=== PATIENT | male | born 1970 | race Two or more races ===

== ENCOUNTER 2017-03-11 07:35 | Inpatient (IN) | payer BC, MEDICARE ==
[~2017-03-11] VITALS: Ht 167.6 cm; Wt 74.7 kg
--- NOTE | ~2017-03-11 | CON ---
PATIENT'S NAME: MERRILL BRITO [facility] AGE: 46 Y [address] ROOM: [address] [address] LOCATION: [facility] [place] ADMIT DATE: 03/11/2017 Consultation DISCHARGE DATE: 03/12/2017 FAMILY PHYSICIAN: Venkat Ochoa MD ATTENDING PHYSICIAN: Ben Davidson DATE OF CONSULTATION: 03/12/2017 REFERRING PHYSICIAN: Lucy Randhawa MD INITIAL PSYCHIATRIC EVALUATION/CONSULTATION DATA: This is a 46-year-old [place]i male, date of 1970, currently admitted to [facility]. Consultation is requested by Dr. Davidson. DIAGNOSES: At time of the evaluation, adjustment disorder with depression. RECOMMENDATIONS: After talking extensively with the patient, the patient is denying being suicidal and denying being currently depressed. He admits previous depression but not currently depressed, and he is sure that he does not want any kind of treatment for depression. He will actually call if needed. He accepts that if things changes, he will be ready or willing to have some treatment, but at present time, he is refusing to have any treatment for depression, and he is denying being currently suicidal. HISTORY: This gentleman has been having problems since he actually got on dialysis approximately a year ago. He has been doing reasonably okay until recently, in which he actually needs some dialysis, and the report is that even as early at this morning he was talking about life not being worth living, so a psychiatric consultation was requested. I came to [facility], reviewed electronic records, the paper records, talked to the patient on a [id number] and with the nurse also for collateral information. The patient is cooperative, a good historian that accepts getting depressed occasionally, apparently for what he says has not need any criteria for major depressive disorder or dysthymic disorder and seems to be situational, and the sadness seems to be episodic. There has been time, in which the sadness is profound and he is having some passive wishes, but not active suicidal idea. The patient had been tried on antidepressant, but he stopped thinking that it was not needed and not working for him. The patient has not been psychotic, manic, or hypomanic. No issues with obsession and compulsion, of eating disorder. There is a history of post traumatization when he was a child PATIENT'S NAME: MERRILL BRITO [facility] AGE: 46 Y [address] ROOM: [address] [address] LOCATION: [facility] [place] ADMIT DATE: 03/11/2017 Consultation DISCHARGE DATE: 03/12/2017 FAMILY PHYSICIAN: Venkat Ochoa MD ATTENDING PHYSICIAN: Ben Davidson without full PTSD diagnosis, and there is some family history of depression in the sister. MENTAL STATUS EXAMINATION: This is a gentleman, Nauruan-speaking, cooperative, good hygiene, good eye contact. No psychomotor agitation or retardation. His speech is normal in volume, tone, and production. Mood is described as good, assessed as labile. Affect is labile but appropriate to thought content. Thought content is relevant by the patient denying any suicidal, homicidal ideation or denying any auditory hallucination, denying any delusional thoughts. Thought process coherent, congruent. No loosening of association. Insight and judgment seem to be fair. Memory is within normal limits. He is alert and oriented and intelligence is average. STRENGTHS: Intelligence, access to service. BARRIERS: Not currently. CHASE RODRIGUEZ MD HG/modl /[id number] d: 03/12/176 t: 03/14/17 1004, CONSULTATION REPORT
--- NOTE | ~2017-03-11 | CON ---
PATIENT'S NAME: MERRILL BRITO [facility] AGE: 46 Y [address] ROOM: [place] [address] LOCATION: [facility] [place] ADMIT DATE: 03/11/2017 Consultation DISCHARGE DATE: FAMILY PHYSICIAN: Venkat Ochoa MD ATTENDING PHYSICIAN: TENZIN COREAS DATE OF CONSULTATION: 03/11/2017 REFERRING PHYSICIAN: Keyonna Shields This is a [facility] Nephrology consultation. REASON FOR CONSULTATION: End-stage renal disease, needing hemodialysis therapy, hyperkalemia. HISTORY OF PRESENT ILLNESS: This is a 46-year-old male patient, who is well known to Dr. Shields for history of end-stage renal disease, on hemodialysis 4 days a week. The patient reportedly had his last hemodialysis on March 01, 2017, and has subsequently missed his hemodialysis appointment since that time. He is scheduled to receive hemodialysis on Saturday, Saturday, Saturday, and Saturday every week. Today, the patient would have missed 5 of his regularly scheduled hemodialysis' appointments. Per the patient's , he did feel poorly this morning and was going to attend an outpatient hemodialysis appointment, however, due to the patient's absence, he was sent to the emergency room for further evaluation and possible inpatient hemodialysis. PAST MEDICAL HISTORY: The patient does have a past medical history of: 1. End-stage renal disease from diabetes and uncontrolled hypertension. 2. Anxiety. 3. Hypoalbuminemia. 4. Nephrotic syndrome. 5. Anemia of chronic kidney disease. 6. Hypogonadism. PAST SURGICAL HISTORY: 1. Left arm brachiobasilic primary AV fistula placement by Dr. Mcclure on November 23, 2015. 2. Second-stage basilic transposition of the left AV fistula by Dr. Mcclure on 02/16/2016. SOCIAL HISTORY: The patient does live at home with his . He does have a history of past tobacco abuse and reportedly smoked half a pack per day for at least 25 years. Denies any alcohol use at this time. Denies illicit drug use. PATIENT'S NAME: MERRILL BRITO [facility] AGE: 46 Y [address] ROOM: [address] [address] LOCATION: [facility] [place] ADMIT DATE: 03/11/2017 Consultation DISCHARGE DATE: FAMILY PHYSICIAN: Venkat Ochoa MD ATTENDING PHYSICIAN: TENZIN COREAS FAMILY HISTORY: Reviewed and is significant for his mother dying in her 70s from complications of diabetes as well as end-stage renal disease. His father in his 80s and also had diabetes. CURRENT MEDICATIONS: 1. Amlodipine 10 mg daily. 2. Coreg 12.5 mg twice a day. 3. Glimepiride 4 mg 2 tablets daily. 4. Losartan 50 mg 1 tablet twice a day. 5. Paxil 12.5 mg 1 tablet at bedtime. 6. PhosLo 667 mg 4 tablets 3 times a day with food. 7. MiraLAX 15 g orally as directed for constipation. ALLERGIES: NONE TO MEDICATIONS. REVIEW OF SYSTEMS: GENERAL: Positive for fatigue. EYES: Positive for blurry vision. NOSE: No epistaxis or rhinorrhea. MOUTH: No gingival bleeding. Positive for dry mouth. THROAT: No sore throat, hoarseness, or cough. RESPIRATORY: Denies any wheezing or hemoptysis. CARDIOVASCULAR: Denies any chest pain or palpitations. Complains of near syncope on multiple occasions over the past few days. GASTROINTESTINAL: Negative for nausea, vomiting, or diarrhea. GENITOURINARY: Negative for dysuria or hematuria. Negative for incontinence. MUSCULOSKELETAL: Generalized arthralgias. NEUROLOGICAL: Denies numbness and tingling in the upper or lower extremities. HEMATOLOGICAL: No bruising or easy bleeding. IMMUNOLOGICAL: No recent infections. PSYCHIATRIC: Positive for depression. Positive for anxiety. PHYSICAL EXAMINATION: VITAL SIGNS: Blood pressure is 147/78, pulse is 95, respirations are 18, temp is 97.0, sats are 96% on room air. Weight is 78.8 kg, dry weight is established as 71.0 kg. GENERAL: On exam, this is an alert, oriented, male, who appears his approximate stated age. He is in no acute distress. HEENT: Head: His head is normocephalic and atraumatic. Eyes: Pupils are equal and react briskly to light and accommodation. Nose: Midline. Mouth: No gingival bleeding. Mucous membranes are dry. Throat is without lymphadenopathy or carotid bruits. No JVD. PATIENT'S NAME: MERRILL BRITO [facility] AGE: 46 Y [address] ROOM: [place] [address] LOCATION: [facility] [place] ADMIT DATE: 03/11/2017 Consultation DISCHARGE DATE: FAMILY PHYSICIAN: Venkat Ochoa MD ATTENDING PHYSICIAN: TENZIN COREAS LUNGS: Sounds are diminished in the bases bilaterally. CARDIOVASCULAR: He has a tachycardic rhythm with a rate of 112 beats per minute. Unable to appreciate any murmurs, rubs, or thrills. ABDOMEN: Soft, nontender, and nondistended. Bowel sounds positive. EXTREMITIES: Show no signs of peripheral edema, clubbing, or cyanosis. NEUROLOGICAL: Cranial nerves 2 through 12 are grossly intact. LABORATORY DATA: WBC 7.5, hemoglobin 8.8, hematocrit 25.4, platelets 165, glucose 146, BUN is 210, creatinine 21.6, sodium 136, potassium is 8.1, CO2 is 14, chloride 102, calcium 8.9, and albumin is 3.1, phos is 8.3, and magnesium is 3.8. ASSESSMENT AND PLAN: 1. End-stage renal disease, needing hemodialysis. We will obtain the patient's outpatient clinical record. The patient's potassium is greater than 8. We will initiate hemodialysis as soon as possible. The patient does not show any acute ST-T wave abnormalities on EKG at this time. We will start him on a 2K bath for 3 hours. We will recheck a potassium at the end of treatment. We will place him on a low-potassium diet. 2. Hyperkalemia. Likely secondary to end-stage renal disease. The patient is to be dialyzed immediately. 3. Depression. The patient has reportedly stopped taking his Paxil as an outpatient. Per the patient and family's request, we will involve a psychiatry consult at this time. We will make further recommendations at that time. Dr. Coreas, hospitalist, has been notified of the patient's admission. This patient has been seen and assessed by Dr. Shields. His care is being conducted in consultation with Dr. Shields as well as me. We will plan further recommendations as they are forthcoming. ELADIO RODRIGUEZ DNP, ORNAMENTAL METAL FABRICATOR APPRENTICE FOR M JEY SHIELDS MD ENS/modl /[id number] d: 03/11/172050 t: 03/20/17 1608, CONSULTATION REPORT
--- NOTE | ~2017-03-11 | ER ---
PATIENT'S NAME: MERRILL BRITO [facility] AGE: 46 Y [address] ROOM: [place] [address] LOCATION: [facility] [place] ADMIT DATE: 03/11/2017 ER/Outpatient Report DISCHARGE DATE: FAMILY PHYSICIAN: Venkat Ochoa MD ATTENDING PHYSICIAN: TENZIN COREAS Time of Arrival: 0735 hours. Time of Evaluation: 0740 hours. CHIEF COMPLAINT: Missed dialysis, not feeling well. HISTORY OF PRESENT ILLNESS: The patient is a 46-year-old male who presents to the emergency department today with a chief complaint of missed his dialysis and not feeling well. He reports he just feels weak. He reports he has not had dialysis since last Saturday approximately 8 days ago. He normally goes on Saturday, Saturday, and Fridays. He denies any chest pain, no shortness of breath, just feels very weak. Denies any fevers. Does have some chills. No nausea, vomiting, diarrhea, constipation, or abdominal pain. PAST MEDICAL HISTORY: Chronic kidney disease, on dialysis; hypertension; and [id number] diabetes. PAST SURGICAL HISTORY: Left arm fistula. SOCIAL HISTORY: The patient denies any tobacco, alcohol, or illicit drug use. ALLERGIES: NO KNOWN DRUG ALLERGIES. MEDICATIONS: Please see list. PRIMARY CARE DOCTOR: Venkat Ochoa MD in [place]. MAT MACHINE TENDER: Lucy Randhawa MD. REVIEW OF SYSTEMS: All systems are reviewed by myself and are negative with the exception of [facility]GE: 46 Y [address] ROOM: [place] [address] LOCATION: [facility] [place] ADMIT DATE: 03/11/2017 ER/Outpatient Report DISCHARGE DATE: FAMILY PHYSICIAN: Venkat Ochoa MD ATTENDING PHYSICIAN: TENZIN COREAS those discussed in HPI and past medical history. PHYSICAL EXAMINATION: VITAL SIGNS: Weight 79.2 kg. Blood pressure 179/90, pulse 107, respiratory rate 18, temperature 97.9, and oxygen saturation 97% on room air. GENERAL: The patient is a 46-year-old male who appears stated age, in no acute distress. HEENT: Normocephalic, atraumatic. Pupils are equal, round, and reactive to light and accommodation. NECK: Supple. There is no nuchal rigidity. CARDIOVASCULAR: Regular rate and rhythm. No murmurs, rubs, or gallops. LUNGS: Clear to auscultation bilaterally. No wheezes, rales, or rhonchi. ABDOMEN: Soft, nontender, and nondistended. No rebound, rigidity, or guarding. MUSCULOSKELETAL: The patient moves all 4 extremities. SKIN: Warm and dry. LABORATORY DATA AND X-RAYS: Labs and x-rays are obtained. EKG is obtained, is interpreted by myself, does show sinus tachycardia with a rate of 107, normal axis, normal interval, no ST elevation or ST depression. There is peaked T-wave noted. CBC is unremarkable except for hemoglobin 8.8 and hematocrit 25.4. CMP is unremarkable except for potassium 8.1, CO2 of 14, BUN 210, creatinine 21.6, phosphorus 8.3, magnesium 3.8. IMPRESSION: 1. Severe hyperkalemia. 2. Missed dialysis secondary to medical noncompliance. 3. Chronic anemia. 4. Hypermagnesemia. 5. Initial visit. EMERGENCY DEPARTMENT COURSE: The patient was brought back to the examination room. Seen and evaluated by myself. IV is established. Laboratory analysis and imaging are obtained as described above. EKG was obtained. Once the patient's potassium was returned, I contacted Antonia Leroyney with Dialysis. They do report that they are ready to dialyze him right now and can get him straight in. The patient is sent directly to dialysis, thus the patient was not given medications for hyperkalemia, as they are ready to dialyze him. The patient will be admitted with weakness and severe hyperkalemia by the Hospitalist Service. I have discussed the case with the Hospitalist Service, Dr. Coreas. DISPOSITION: The patient is admitted in stable condition. PATIENT'S NAME: MERRILL BRITO [facility] AGE: 46 Y [address] ROOM: [address] [address] LOCATION: [facility] [place] ADMIT DATE: 03/11/2017 ER/Outpatient Report DISCHARGE DATE: FAMILY PHYSICIAN: Venkat Ochoa MD ATTENDING PHYSICIAN: TENZIN COREAS DO EMMANUEL LINO/modl /[id number] d: 03/11/172111 t: 03/20/17 0651, OUTPATIENT REPORT
--- NOTE | ~2017-03-11 | HP ---
PATIENT'S NAME: MERRILL BRITO [facility] AGE: 46 Y [address] ROOM: [address] [address] [place] [facility] [place] DATE: 03/11/2017 History & Physical DISCHARGE DATE: FAMILY PHYSICIAN: Venkat Ochoa MD ATTENDING PHYSICIAN: TENZIN COREAS DATE OF SERVICE: CHIEF COMPLAINT: Generalized weakness. HISTORY OF PRESENT ILLNESS: This is a 46-year-old male, who has a longstanding history of diabetes type 2, hypertension, and end-stage renal disease, on hemodialysis; usually gets four days per week on Saturday, Saturday, Saturday, and Saturday. However, the patient is non-compliant with the dialysis and also with the home medication. The story is that, for the last 2 days, the patient states that he has been feeling weak and tired in general, and feels this muscle weakness all over his body. Because of this, the patient came here for evaluation. The patient also says that he has missed the last three sessions of the hemodialysis. When questioned why, patient could not really give me an answer. The patient is also somewhat noncompliant with the home medications for the diabetes and also for the hypertension as well. Today, in the ED, potassium was found to be 8.1, and the EKG showed tall-peaked T-wave with sinus tachycardia heart rate of 107, MA of 174 msec, QRS of 103 msec, and QTc of 387 msec. The patient was taken to the dialysis right away, and currently is status post 3 L removal of the hemodialysis. Potassium checked again was 3.4. The patient was asymptomatic, will be admitted in the Medical-Surgical Unit, and will have another dialysis tomorrow and also on Saturday. The patient denies any other symptoms. REVIEW OF SYSTEMS: As mentioned in the history of present illness. All other systems were reviewed and were negative except those mentioned in the history of present illness. PAST MEDICAL HISTORY: 1. End-stage renal disease, on hemodialysis every Saturday, Saturday, Saturday, and Saturday, but patient is noncompliant. 2. Diabetes, type 2. 3. Hypertension. ALLERGIES: NO KNOWN DRUG ALLERGIES ACCORDING TO THE PATIENT. PATIENT'S NAME: MERRILL BRITO [facility] AGE: 46 Y [address] ROOM: [id number] [place], [place] [address] [place]: [facility] [place]MIT DATE: 03/11/2017 History & Physical DISCHARGE DATE: FAMILY PHYSICIAN: Venkat Ochoa MD ATTENDING PHYSICIAN: TENZIN COREAS [place] MEDICATIONS: Currently is being reconciled. It will be addressed once the list is ready. SOCIAL HISTORY: The patient was a former cigarette smoker. He quit about 3 years ago. He used to smoke about two packs per day for 20 years. He denies any alcohol or any illegal drug use. PAST SURGICAL HISTORY: Status post left AV fistula arm placement for hemodialysis. FAMILY HISTORY: Father has diabetes. Mother also had diabetes, type 2. PHYSICAL EXAMINATION: VITAL SIGNS: At the time of my dictation, temperature was 98, blood pressure was 150/75, respirations were 14, heart rate was 68, and saturation was 98% on room air. GENERAL APPEARANCE: Alert and oriented x3, in no acute distress. HEENT: Pupils are equally round and reactive to light. Anicteric sclerae. Nasal turbinates are normal bilaterally. Moist oral mucosa. NECK: No JVD. CARDIOVASCULAR: Regular rate and rhythm. No murmur. No rubs. No gallops. Normal S1 and S2. RESPIRATORY: Some decreased breath sounds in bibasilar bases, but otherwise clear to auscultation. ABDOMEN: Soft, nontender, and nondistended. Normal bowel sounds. No mass. No hepatosplenomegaly. Bowel sounds are present. No abdominal rigidity. EXTREMITIES: No edema in upper or lower extremities. SKIN: No ulcer. No rash. No cyanosis. NEUROLOGIC: Grossly nonfocal. MUSCULOSKELETAL: No joint pain. No muscle pain. Range of motion was intact. LABORATORY DATA: White blood cells of 7.5, hemoglobin of 8.8, hematocrit of 25.4, and platelets of 165. Glucose was 146, BUN was 210, creatinine was 21.6, sodium was 136, potassium was 8.1 and then 3.4 after hemodialysis, chloride was 102, CO2 was 14, calcium was 8.9, albumin was 3.1, phosphorus was 8.3, magnesium was 3.8, anion gap was 28.1, and GFR was 2. IMAGING STUDIES: EKG on admission on March 11, 2017 at 08:17 a.m. showed sinus tachycardia heart rate of 107, MA of 174 msec, QRS of 103 msec, and QTc of 387 msec with a tall- peaked T-wave. PATIENT'S NAME: MERRILL BRITO [facility] AGE: 46 Y [address] ROOM: [address] [address] LOC[place]: [facility] [place] ADMIT DATE: 03/11/2017 History & Physical DISCHARGE DATE: FAMILY PHYSICIAN: Venkat Ochoa MD ATTENDING PHYSICIAN: TENZIN COREAS ASSESSMENT AND PLAN: 1. Regarding his hyperkalemia secondary to noncompliance with the hemodialysis for the end-stage renal disease: Most likely cause is his noncompliance with his hemodialysis sessions. The patient missed the last three sessions of hemodialysis. The plan will be to continue hemodialysis tomorrow and also on Saturday. Follow up with Nephrology to see when the patient can be discharged home to continue outpatient hemodialysis. I will check the labs again in the morning. 2. Regarding his hypertension: Continue amlodipine 10 mg p.o. daily and home medication needs to be addressed once it is reconciled. For now, I will add IV labetalol p.r.n. and IV hydralazine p.r.n. for hypertension control. 3. Regarding his diabetes, type 2: Check A1c, and also can have a diabetic diet. Also, use subcu aspart low dose q.4 hours and titrate as needed. 4. Regarding his deep venous thrombosis prophylaxis: The patient can have heparin subcu three times a day 5000 units. 5. Code status: He is a full code. 6. Regarding his depression: Currently not suicidal, I will get psychiatry consult to evaluate his depression per renal's recommendation. Time spent in care on the day of admission was 40 minutes, where 20 minutes were spent in chart review and interview and also on physical examination. The other 20 minutes were spent on counseling including going over the plan of care with the patient, and addressing all his questions and concerns to his satisfaction. I also went over the plan of care with the patient's as well to her satisfaction. Further plan will depend on clinical course. TENZIN COREAS MD CC/modl /[id number] D: [id number] T: [id number] HISTORY & PHYSICAL
[~2017-03-11 07:35] MED LIST: AMARYL4 MG PO; COREG25 MG PO; HUMULIN 70100 UNIT/M SUB-Q; NORCO 5-325 MG1 TAB PO; NORVASC10 MG PO; OCUVITE SOFTGE1 EACH PO; ONE DAILY FOR1 EACH PO; PHOSLO667 MG PO; THERAGRAN-M1 TAB PO; ULTRAM50 MG PO
[2017-03-11 08:46] LABS: BASOPHIL % 0.3 %; EOSINOPHIL # 0.1 K/uL (0.0-0.5); EOSINOPHIL % 1.6 %; HEMATOCRIT 25.4 % (37.0-53.0); HEMOGLOBIN 8.8 g/dL (12.0-17.0); IMMATURE GRANULOCYTE % 0.4 %; LYMPHOCYTE # 1.1 K/uL (0.8-4.0); LYMPHOCYTE % 14.3 %; MCH 34.1 pg (27.0-34.0); MCHC 34.6 gm/dL (32.0-36.5); MCV 98.4 fl (83.0-98.0); MONOCYTE # 0.5 K/uL (0.0-1.0); MONOCYTE % 6.7 %; MPV 10.5 fl (9.4-12.4); NEUTROPHIL # (ANC) 5.7 K/uL (1.4-9.0); NEUTROPHIL % 76.7 %; NRBC % 0 /100WBC (0-0.00); PLATELET COUNT 165 K/uL (150-450); RDW-CV 14.3 % (11.9-14.6); WBC 7.5 K/uL (4.0-11.0)
[2017-03-11 08:47] LABS: RBC 2.58 M/uL (4.00-6.00)
[2017-03-11 09:12] LABS: ALBUMIN 3.1 gm/dL (3.5-5.0); CALCIUM 8.9 mg/dL (8.5-10.5); PHOSPHORUS 8.3 mg/dL (2.5-4.9)
[2017-03-11 09:26] LABS: ANION GAP 28.1 (10.0-19.0); MAGNESIUM 3.8 mg/dL (1.8-2.6)
[2017-03-11 09:29] LABS: CREATININE 21.6 mg/dL (0.6-1.3); POTASSIUM 8.1 mMol/L (3.7-5.1)
[2017-03-11 13:54] LABS: MAGNESIUM 2.6 mg/dL (1.8-2.6)
[2017-03-11 14:03] LABS: POTASSIUM 3.4 mMol/L (3.7-5.1)
[2017-03-11] MEDS ORDERED: COZAAR50 MG PO (16:56)
[2017-03-11] MEDS ORDERED: COREG12.5 MG PO (16:57)
[2017-03-11] MEDS ORDERED: PHOSLO667 MG PO (17:01)
--- NOTE | 2017-03-11 17:07 | NUR ---
Significant Event: Admit at 1540. Ambulates few steps in room with SBA. Denies pain. Scratches to R) outer ng. Hypertensive. Tele with no calls. Dialysis today, plan for dialysis tomorrow. Follow up:
--- NOTE | 2017-03-11 18:32 | NUR ---
Patient is 46 yo male admitted from ER today. Patient had dialysis today. He states he was dizzy this morning and fell. Patient states he did not take any dialysis treatments last week as he was feeling pretty good and didn't think he needed any. states "I guess I should have taken them." accompanies patient. patient is pleasant. states he is depressed. Education is given as documented. patient and family deny questions at this time. pneumatics are on bilat calves. pt payton well. fall bracelet on. Call light is within reach. patient denies needs at this time. Report is given to night RN.
--- NOTE | 2017-03-11 18:54 | NUR ---
Saline lock is started in right forearm w/20 ga intracath without diff. pt payton well. Advanced Directive booklet was given to patient with instructions for use. pt denies questions. Report is given to SHEMAR Taylor.
--- NOTE | 2017-03-12 03:47 | NUR ---
Significant Event: VSS. Alert and oriented X3. On tele, in sinus rhythm, no calls from telemetry. Denies dizziness. Fistual to LUE, bruit and thrill present. Will have dialysis again today. Pt did have 1 small void, unable to measure. Denies pain. Started on heparin for DVT prophylaxis. Has bilateral pneumatic pumps on. Diabetic neuropathy to bilateral feet. Accuchecks q 4 hr. Has not needed any sliding scale coverage. Follow up: Would like a sleeping pill ordered if patient stays again tonight. Change accuchecks to AC&HS?
[2017-03-12 07:16] LABS: HEMATOCRIT 24.6 % (37.0-53.0); HEMOGLOBIN 8.6 g/dL (12.0-17.0); MCH 33.9 pg (27.0-34.0); MCV 96.9 fl (83.0-98.0); MPV 10.2 fl (9.4-12.4); RBC 2.54 M/uL (4.00-6.00)
[2017-03-12 07:34] LABS: CALCIUM 8.3 mg/dL (8.5-10.5); PHOSPHORUS 7.4 mg/dL (2.5-4.9)
[2017-03-12 07:37] LABS: CREATININE 13.1 mg/dL (0.6-1.3)
--- NOTE | 2017-03-12 16:33 | NUR ---
Significant Event:Is A/O.Had dialysis today.Fistula Lt.upper arm.Had psych consult today & totally denied any suicidal thoughts.Has SL.On accuchecks.Little urine.Had stool yesterday.Has been up,steady on feet.No dizziness or lightheadedness.No c/o pain. Follow up:
--- NOTE | 2017-03-12 17:12 | NUR ---
DISCHARGE: D: ORDERS RECEIVED FOR THE PATIENT TO GO HOME TODAY WITH HIS . I: DISMISSAL INSTRUCTIONS WERE PREPARED AND REVIEWED WITH THE PATIENT VIRTUALLY. THE FOLLOWING INFORMATION WAS DISCUSSED INCLUDING [employer] TEACHING SHEETS PROVIDED: DISHCARGE INSTRUCTIONS FOR HYPERKALEMIA, KIDNEY DISEASE-EATING LESS SODIUM, KIDNEY DISEASE-GETTING THE RIGHT AMOUNT OF PROTEIN, KIDNEY DISEASE-CHOOSING THE RIGHT PROTEIN FOR YOUR BODY, AND KIDNEY DISEASE-AVOIDING HIGH SODIUM FOODS. REVIEWED NEW APPOINTMENT AND DISCHARGE INSTRUCTIONS. R: THE PATIENT VERBALIZED UNDERSTANDING OF THE DISMISSAL INSTRUCTIONS AT THE TIME OF TEACHING WITH NO FURTHER QUESTIONS. THE DISMISSAL INSTRUCTIONS MAY NEED TO BE REVIEWED AGAIN WITH THE PATIENT'S WHEN SHE IS PRESENT LATER THIS EVENING. P: THE ABOVE INFOMATION WAS SHARED WITH THE PRIMARY NUSRE AND THE CHARGE NURSE THAT THE PATIENT'S DISMISSAL EDUCATION WAS COMPLETED. THE PATIENT IS READY FOR DISCHARGE SOON HIS GET HER AND IS AVAILABLE. SHE DID GO HOME TO [place].
== END 2017-03-12 18:40 | disposition disaster alternative care site (69) | DRG 640 ==
LOC: GMED 07:35 → GMSU 13:17
PROVIDERS: Emergency Medicine; Internal Medicine Nephrology; ADMIT Internal Medicine
PROC: 5A1D60Z (ICD-10-PCS; principal; 2017-03-11)
DX: E87.5 Hyperkalemia (principal); N18.6 End stage renal disease; R45.851 Suicidal ideations; I12.0 Hypertensive chronic kidney disease with stage 5 chronic kidney disease or end stage renal disease; E11.22 Type 2 diabetes mellitus with diabetic chronic kidney disease; F43.20 Adjustment disorder, unspecified; F32.9 Major depressive disorder, single episode, unspecified; Z99.2 Dependence on renal dialysis; Z91.15 Patient's noncompliance with renal dialysis; Z87.891 Personal history of nicotine dependence
CPT/HCPCS: J1644; P9047